=== PATIENT | male | born 1970 | race Caucasian/White ===

== ENCOUNTER 2019-10-30 23:58 | Inpatient (IN) | payer BC, MEDICAID, OTHER ==
[~2019-10-30] VITALS: Ht 172.7 cm; Wt 58.1 kg
[~2019-10-30 23:58] MED LIST: FOLI0.4T14 PO; LACT10SO32 PO; MIDO2.5T14 PO; MULT-1179 PO; PENT400T17 PO; PRED20TA PO; folic acid tablet PO; thiamine tablet PO
[2019-10-31] MEDS ORDERED: normal saline 1000ML IV soln IVB ONE (00:15)
[2019-10-31 00:33] LABS: BASOPHILS # (AUTO) 0.2 X10'3 (0-0.2); BASOPHILS % (AUTO) 0.4 % (0-1); EOSINOPHILS # (AUTO) 0.1 X10'3 (0-0.9); EOSINOPHILS % (AUTO) 0.2 % (0-6); HEMATOCRIT 28.1 % (42.0-52.0); HEMOGLOBIN 9.1 g/dl (14.0-17.9); LYMPHOCYTES # (AUTO) 1.4 X10'3 (1.1-4.8); LYMPHOCYTES % (AUTO) 3.3 % (21-51); MEAN CORPUSCULAR HEMOGLOBIN 37.1 PG (27.0-31.0); MEAN CORPUSCULAR HGB CONC 32.5 g/dL (33.0-36.5); MEAN CORPUSCULAR VOLUME 114.3 FL (78-98); MEAN PLATELET VOLUME 9.8 FL (7.4-10.4); MONOCYTES # (AUTO) 2.4 X10'3 (0-0.9); MONOCYTES % (AUTO) 5.8 % (2-12); NEUTROPHILS # (AUTO) 36.6 X10'3 (1.8-7.7); NEUTROPHILS % (AUTO) 90.3 % (42-75); PLATELET COUNT 88 X10'3 (140-440); RED BLOOD COUNT 2.45 X10'6 (4.70-6.10); RED CELL DISTRIBUTION WIDTH 17.3 % (11.5-14.5)
[2019-10-31 00:41] LABS: ALANINE AMINOTRANSFERASE 53 U/L (12-78); ALBUMIN 1.6 G/DL (3.4-5.0); ALKALINE PHOSPHATASE 528 IU/L (46-116); AMYLASE 37 U/L (25-115); BLOOD UREA NITROGEN 60 MG/DL (7-18); BUN/CREATININE RATIO 13.1 (5.4-32.0); CALCIUM 7.6 MG/DL (8.5-10.1); CREATININE 4.58 MG/DL (0.60-1.10); LIPASE 178 U/L (73-393); TOTAL CARBON DIOXIDE 19.2 MMOL/L (24-32); WHITE BLOOD COUNT 40.6 X10'3 (4.5-11.0); eGFR 14 ML/MIN
[2019-10-31 00:56] LABS: ASPARTATE AMINO TRANSFERASE 111 U/L (10-37); GLUCOSE 115 MG/DL (70-104); POTASSIUM 5.1 MMOL/L (3.5-5.1); SODIUM 134 MMOL/L (135-145)
[2019-10-31 00:58] LABS: TOTAL CELLS COUNTED 100
[2019-10-31 00:59] LABS: ANISOCYTOSIS 2+; PLATELET ESTIMATE DECREASED; POLYCHROMASIA 1+
[2019-10-31 01:01] LABS: ALBUMIN/GLOBULIN RATIO 0.8 (1.1-1.5); ANION GAP 16 (8-16); CHLORIDE 99 MMOL/L (99-107); TOTAL PROTEIN 3.7 G/DL (6.4-8.2)
[2019-10-31 01:02] LABS: ETHANOL < 0.010 GM/DL (0.0-0.010)
--- NOTE | 2019-10-31 02:35 | NUR ---
PATIENT IN BED EYES CLOSED COVERS ON RR EVEN UN LABORED NO OBSERVABLE S/S OF ACUTE STRESS AT THIS TIME WILL CONTINUE TO MONITOR
[2019-10-31] MEDS ORDERED: piperacillin/tazo 3.375gm/50ml 50 ML IV STA (02:55)
[2019-10-31] MEDS ORDERED: acetaminophen 325mg tablet PO PRN ×2 (04:25)
[2019-10-31] MEDS ORDERED: acetaminophen 650mg rectal suppository RC PRN (04:25)
[2019-10-31 06:32] LABS: CLARITY,URINE CLOUDY (Clear); COLOR,URINE YELLOW (Yellow); GLUCOSE, URINE NEGATIVE (Neg); KETONES,URINE NEGATIVE (Neg); LEUKOCYTE ESTERASE ,URINE NEGATIVE (Neg); NITRITES, URINE NEGATIVE (Neg); OCCULT BLOOD,URINE MODERATE (Neg); PH,URINE 5.5 (4.8-8.0); PROTEIN,URINE TRACE mg/dl (Neg); UROBILINOGEN,URINE 0.2 E.U/dL (0.2-1.0)
[2019-10-31 06:34] LABS: UA COLLECTION TYPE CLN CATCH MIDSTREAM
[2019-10-31 06:37] LABS: URINE AMPHETAMINE SCREEN NEGATIVE (Neg); URINE BARBITUATE SCREEN NEGATIVE (Neg); URINE BENZODIAZEPINES SCREEN NEGATIVE (Neg); URINE CANNABINOID SCREEN NEGATIVE (Neg); URINE COCAINE SCREEN NEGATIVE (Neg); URINE METHADONE SCREEN NEGATIVE (Neg); URINE OPIATE SCREEN NEGATIVE (Neg); URINE PHENCYCLIDINE SCREEN NEGATIVE (Neg)
[2019-10-31 06:40] LABS: HYALINE CASTS 0-3 /LPF (NEGATIVE); MUCUS STRANDS FEW /LPF (Neg); SQUAMOUS EPITHELIAL CELL,UR FEW /LPF (FEW)
[2019-10-31 06:44] LABS: BACTERIA,URINE 1+ /HPF (Neg); CAL OXALATE CRYSTALS FEW /HPF (NEGATIVE); RBC,URINE 0-2 /HPF (0-2); RENAL CELLS, URINE FEW /HPF; TRANSITIONAL EPI CELLS,URINE FEW /HPF; WBC,URINE 0-4 /HPF (0-4)
--- NOTE | 2019-10-31 06:44 | NUR ---
sbar to leeann lind no questions or concerns after assuming care
[2019-10-31] MEDS ORDERED: SINCALIDE IV ONE (07:10)
[2019-10-31] MEDS ORDERED: NORMAL SALINE IV ONE (07:10)
[2019-10-31] MEDS: piperacillin/tazo 3.375gm/50ml 50 ML IV SCH ×2 (09:30→18:10)
[2019-10-31] MEDS ORDERED: heparin 1,000unit/ml 10ml vial 10 ML IV ONE (12:01)
[2019-10-31] MEDS ORDERED: epoetin 20,000 units/ml inj IV ONE (12:05)
[2019-10-31] MEDS ORDERED: heparin 1,000 units/ml 10ml inj IV ONE (12:05)
[2019-10-31] MEDS ORDERED: albumin (human) 25% 100ml IV 100 ML IV PRN (12:05)
[2019-10-31] MEDS ORDERED: heparin 1,000 units/ml 10ml inj HE ONE ×2 (12:05)
[2019-10-31 12:31] VITALS: BP 91/53
--- NOTE | 2019-10-31 13:35 | NUR ---
Pt to Nuc [employer] with tech
[2019-10-31] MEDS ORDERED: MULT-1085 PO (14:06)
[2019-10-31] MEDS ORDERED: LACT10SO PO (14:06)
[2019-10-31] MEDS ORDERED: FOLI0.4T14 PO (14:06)
[2019-10-31] MEDS ORDERED: THIA50TA10 PO (14:06)
[2019-10-31] MEDS ORDERED: MIDO5TAB4 PO (14:06)
[2019-10-31] MEDS ORDERED: PRED10TA23 PO (14:06)
[2019-10-31] MEDS ORDERED: PENT400T17 PO (14:06)
--- NOTE | 2019-10-31 15:00 | NUR ---
Recieved report from BALDEMAR Ramirez pt is back from [facility] scan
--- NOTE | 2019-10-31 15:01 | NUR ---
Malnutrition consult: Pt admit w/ cholecystitis w/ cholelithiasis, hx hepatorenal syndrome ESRD on HD, and etoh cirrhosis. Pt placed on renal diet but currently NPO for HIDA scan and possible laparoscopic cholecystostomy per MD note. MCV 114.3 w/ cirrhosis and etoh hx. RD d/w MD regarding appetite stimulant as well as thiamin, folic, MVI given HD, poor PO hx recent prior admit not meeting needs, and etoh cirrhosis needs. MD declines appetite stimulant and vitamin supplementation at this time; reports pt currently sober. Current pt wt has no weight method or actual wt documentation in EMR; pt has no edema/wounds. Pt PO hx is pending at this time and no strength assessment noted. Pt is well-developed/well-nourished appearing per FUNDING COORDINATOR note on admit. Pt did meet minimum severe malnutrition criteria prior admit r/t extended poor PO given increased needs and was recently discharged 10/25. Wt loss amount not noted in nursing malnutrition assessment. Pt has been provided written cirrhosis, HD, and malnutrition ed w/ RD contact information prior admit. Given recent positive trigger for severe malnutrition and current lack of information; malnutrition status pending at this time. Will f/u tomorrow for additional malnutrition criteria this admit. Addendum: 10/31/19 at [address] Amended: Links added.
[2019-10-31] MEDS: morphine 2 MG/ML inj. syringe IV PRN (15:09)
[2019-10-31] MEDS ORDERED: midazolam 2 mg/2 ml injection ONE (17:47)
[2019-10-31] MEDS ORDERED: iohexol 300 MG/1 ML 50ml polymer ONE (17:47)
[2019-10-31] MEDS ORDERED: fentaNYL/PF 50MCG/1 ML 2ML syringe ONE (17:47)
[2019-10-31] MEDS ORDERED: LIDOcaine 1%/PF 5ML 10 MG/ML VIAL ONE (17:47)
[2019-10-31 18:00] VITALS: BP 93/57
--- NOTE | 2019-10-31 18:30 | NUR ---
Problems reprioritized. Patient report given, questions answered & plan of care reviewed with Hannah Uribe RN.
[2019-10-31] MEDS ORDERED: iohexol 300mg/ml 100ml inj. ONE (19:31)
[2019-10-31] MEDS: lactobacillus rhamnosus 10,000 MMU CELLS/CAPSULE PO SCH (21:24)
[2019-10-31 22:00] VITALS: BP 86/51
[2019-10-31 22:15] VITALS: BP 88/59
[2019-10-31 23:00] VITALS: BP 86/51
[2019-11-01] VITALS (8 sets, daily range): BP systolic 78–96; BP diastolic 45–61
[2019-11-01] MEDS: piperacillin/tazo 3.375gm/50ml 50 ML IV SCH ×2 (00:51→20:37)
[2019-11-01 03:41] LABS: BASOPHILS # (AUTO) 0.1 X10'3 (0-0.2); BASOPHILS % (AUTO) 0.2 % (0-1); EOSINOPHILS # (AUTO) 0.2 X10'3 (0-0.9); EOSINOPHILS % (AUTO) 0.3 % (0-6); HEMOGLOBIN 9.2 g/dl (14.0-17.9); LYMPHOCYTES # (AUTO) 1.8 X10'3 (1.1-4.8); LYMPHOCYTES % (AUTO) 3.8 % (21-51); MEAN CORPUSCULAR HGB CONC 32.8 g/dL (33.0-36.5); MEAN CORPUSCULAR VOLUME 112.7 FL (78-98); MEAN PLATELET VOLUME 9.8 FL (7.4-10.4); MONOCYTES # (AUTO) 2.2 X10'3 (0-0.9); MONOCYTES % (AUTO) 4.6 % (2-12); NEUTROPHILS % (AUTO) 91.1 % (42-75); PLATELET COUNT 94 X10'3 (140-440); RED BLOOD COUNT 2.48 X10'6 (4.70-6.10); RED CELL DISTRIBUTION WIDTH 17.6 % (11.5-14.5)
[2019-11-01 03:48] LABS: ALANINE AMINOTRANSFERASE 49 U/L (12-78); ALBUMIN 1.5 G/DL (3.4-5.0); ALKALINE PHOSPHATASE 576 IU/L (46-116); ANION GAP 16 (8-16); BILIRUBIN,TOTAL 23.4 MG/DL (0.1-1.0); BLOOD UREA NITROGEN 78 MG/DL (7-18); BUN/CREATININE RATIO 13.2 (5.4-32.0); CALCIUM 7.4 MG/DL (8.5-10.1); CHLORIDE 96 MMOL/L (99-107); MAGNESIUM 1.9 MG/DL (1.5-2.4); SODIUM 129 MMOL/L (135-145); TOTAL CARBON DIOXIDE 16.7 MMOL/L (24-32); eGFR 10 ML/MIN
[2019-11-01 03:49] LABS: ALBUMIN/GLOBULIN RATIO 0.7 (1.1-1.5); ASPARTATE AMINO TRANSFERASE 97 U/L (10-37); GLUCOSE 108 MG/DL (70-104); PHOSPHORUS 6.8 MG/DL (2.3-4.5); POTASSIUM 5.4 MMOL/L (3.5-5.1); TOTAL PROTEIN 3.8 G/DL (6.4-8.2)
[2019-11-01 03:51] LABS: WHITE BLOOD COUNT 47.2 X10'3 (4.5-11.0)
--- NOTE | 2019-11-01 03:54 | NUR ---
Paged Dr. Uribe. PAGER ID: [phone] MESSAGE: [id number] : Kenny, P : Received critical lab value : WBC = 47.2.
[2019-11-01 04:32] LABS: TOTAL CELLS COUNTED 100
[2019-11-01 04:33] LABS: PLATELET ESTIMATE DECREASED
[2019-11-01 04:34] LABS: ANISOCYTOSIS 2+; POLYCHROMASIA 1+
--- NOTE | 2019-11-01 06:07 | NUR ---
Patient in room PCU 3012. I have received report from BALDEMAR Cortes and had the opportunity to ask questions and assume patient care.
--- NOTE | 2019-11-01 06:14 | NUR ---
Problems reprioritized. Patient report given, questions answered & plan of care reviewed with BALDEMAR Walsh.
[2019-11-01] MEDS ORDERED: albumin (human) 25% 100ml IV 100 ML IV PRN (07:45)
[2019-11-01] MEDS ORDERED: epoetin 20,000 units/ml inj IV ONE (07:45)
[2019-11-01] MEDS ORDERED: heparin 1,000 units/ml 10ml inj HE ONE ×2 (07:50)
[2019-11-01] MEDS: lactobacillus rhamnosus 10,000 MMU CELLS/CAPSULE PO SCH ×2 (08:11→20:37)
[2019-11-01] MEDS: morphine 2 MG/ML inj. syringe IV PRN (10:25)
[2019-11-01] MEDS: ondansetron/PF 4mg/2ml inj IV PRN (10:40)
--- NOTE | 2019-11-01 11:15 | NUR ---
Per Dr Santana GI consult has been ordered for patient by Dr Daugherty, Cholecystomy drain placement on hold for GI recommendation Nursing staff informed
[2019-11-01] MEDS ORDERED: NO HOME MEDS (12:37)
--- NOTE | 2019-11-01 15:23 | NUR ---
F/u: Pt PO 100% breakfast today per RN; documented 50% dinner last night first meal. CT shows moderate ascites and cholelithiasis. At this time pt has no edema/wounds, normal strength, decent PO first few meals, and does not meet minimum malnutrition criteria. Will monitor for PO hx and additional malnutrition criteria this admit. Addendum: 11/01/19 at [address] Amended: Links added.
[2019-11-01] MEDS ORDERED: SINCALIDE IV ONE (15:55)
[2019-11-01] MEDS ORDERED: NORMAL SALINE IV ONE (15:55)
--- NOTE | 2019-11-01 18:24 | NUR ---
Problems reprioritized. Patient report given, questions answered & plan of care reviewed with BALDEMAR Gonsales.
--- NOTE | 2019-11-01 18:30 | NUR ---
Patient in room PCU 3012. I have received report from Jillian MCDERMOTT and had the opportunity to ask questions and assume patient care.
--- NOTE | 2019-11-01 21:02 | NUR ---
informed electrophonic engineer storage wharfage clerk of pt episode of sustained hypotension since 1499. ENVIRONMENTAL LEAD asked me to resume monitoring and notify if BP continues to trend further down.
[2019-11-02] VITALS (23 sets, daily range): BP systolic 72–122; BP diastolic 39–88
[2019-11-02 05:41] LABS: BASOPHILS # (AUTO) 0.1 X10'3 (0-0.2); BASOPHILS % (AUTO) 0.3 % (0-1); EOSINOPHILS # (AUTO) 0.2 X10'3 (0-0.9); EOSINOPHILS % (AUTO) 0.4 % (0-6); HEMOGLOBIN 9.2 g/dl (14.0-17.9); LYMPHOCYTES # (AUTO) 2.1 X10'3 (1.1-4.8); LYMPHOCYTES % (AUTO) 4.5 % (21-51); MEAN CORPUSCULAR HEMOGLOBIN 36.8 PG (27.0-31.0); MEAN CORPUSCULAR HGB CONC 32.9 g/dL (33.0-36.5); MEAN CORPUSCULAR VOLUME 111.6 FL (78-98); MEAN PLATELET VOLUME 10.3 FL (7.4-10.4); MONOCYTES # (AUTO) 2.7 X10'3 (0-0.9); MONOCYTES % (AUTO) 5.9 % (2-12); NEUTROPHILS # (AUTO) 41.5 X10'3 (1.8-7.7); NEUTROPHILS % (AUTO) 88.9 % (42-75); PLATELET COUNT 94 X10'3 (140-440); RED BLOOD COUNT 2.51 X10'6 (4.70-6.10); RED CELL DISTRIBUTION WIDTH 17.4 % (11.5-14.5)
[2019-11-02 05:53] LABS: WHITE BLOOD COUNT 46.6 X10'3 (4.5-11.0)
[2019-11-02 05:56] LABS: ALANINE AMINOTRANSFERASE 52 U/L (12-78); ALBUMIN 1.4 G/DL (3.4-5.0); ALKALINE PHOSPHATASE 582 IU/L (46-116); ANION GAP 10 (8-16); BILIRUBIN,TOTAL 22.1 MG/DL (0.1-1.0); BLOOD UREA NITROGEN 47 MG/DL (7-18); CALCIUM 7.4 MG/DL (8.5-10.1); CHLORIDE 98 MMOL/L (99-107); MAGNESIUM 1.8 MG/DL (1.5-2.4); SODIUM 132 MMOL/L (135-145); TOTAL CARBON DIOXIDE 24.2 MMOL/L (24-32)
[2019-11-02 06:08] LABS: ASPARTATE AMINO TRANSFERASE 111 U/L (10-37); BUN/CREATININE RATIO 10.7 (5.4-32.0); CREATININE 4.39 MG/DL (0.60-1.10); GLUCOSE 94 MG/DL (70-104); PHOSPHORUS 5.9 MG/DL (2.3-4.5); POTASSIUM 4.5 MMOL/L (3.5-5.1); eGFR 14 ML/MIN
--- NOTE | 2019-11-02 06:18 | NUR ---
Problems reprioritized. Patient report given, questions answered & plan of care reviewed with Chace MCDERMOTT.
[2019-11-02 06:24] LABS: ALBUMIN/GLOBULIN RATIO 0.5 (1.1-1.5)
[2019-11-02 06:46] LABS: PLATELET ESTIMATE DECREASED; TOTAL CELLS COUNTED 100
--- NOTE | 2019-11-02 06:46 | NUR ---
Patient in room PCU 3012. I have received report from TERE MCDERMOTT and had the opportunity to ask questions and assume patient care.
[2019-11-02 06:47] LABS: ANISOCYTOSIS 2+; POLYCHROMASIA 2+; ROULEAUX 1+; TOXIC GRANULATION 2+
[2019-11-02 06:48] LABS: HYPOCHROMASIA 1+
[2019-11-02] MEDS: piperacillin/tazo 3.375gm/50ml 50 ML IV SCH ×2 (08:00→19:39)
[2019-11-02] MEDS: lactobacillus rhamnosus 10,000 MMU CELLS/CAPSULE PO SCH ×2 (09:16→19:40)
[2019-11-02] MEDS ORDERED: fentaNYL/PF 50MCG/1 ML 2ML syringe ONE ×2 (18:12→19:03)
--- NOTE | 2019-11-02 18:21 | NUR ---
Pt to IR for para and drain
[2019-11-02] MEDS ORDERED: albumin (human) 25% 100ml IV 200 ML IV ONE ×2 (18:25)
--- NOTE | 2019-11-02 18:35 | NUR ---
Problems reprioritized. Patient report given, questions answered & plan of care reviewed with Dru RN.
[2019-11-02 21:34] LABS: GLUCOSE,BODY FLUID 140 MG/DL; LDH,BODY FLUID 65 U/L
[2019-11-02 22:12] LABS: BFAPPEAR CLEAR; BFCOLOR AMBER; BFVOLUME 65 ML
[2019-11-02 22:13] LABS: BF RBC COUNT 118 /CU MM; BF WBC COUNT 48 /CU MM (0-1000); LYMPHOCYTES,BODY FLUID 8 %; MONOCYTES,BODY FLUID 9 %; NEUTROPHILS,BODY FLUID 83 %
[2019-11-02 22:16] LABS: TOTAL PROTEIN,BODY FLUID < 2.0 G/DL
[2019-11-02 23:02] LABS: BFAPPEAR CLEAR
[2019-11-02 23:04] LABS: BF RBC COUNT 0 /CU MM; BF WBC COUNT 1 /CU MM (0-1000); BFCOLOR AMBER; BFVOLUME 29 ML
[2019-11-03] VITALS (7 sets, daily range): BP systolic 75–91; BP diastolic 41–48
[2019-11-03 05:37] LABS: ALANINE AMINOTRANSFERASE 37 U/L (12-78); ALBUMIN 1.8 G/DL (3.4-5.0); ALKALINE PHOSPHATASE 447 IU/L (46-116); BILIRUBIN,TOTAL 21.6 MG/DL (0.1-1.0); BLOOD UREA NITROGEN 56 MG/DL (7-18); MAGNESIUM 1.8 MG/DL (1.5-2.4); TOTAL CARBON DIOXIDE 21.7 MMOL/L (24-32)
[2019-11-03 05:45] LABS: ALBUMIN/GLOBULIN RATIO 0.9 (1.1-1.5); TOTAL PROTEIN 3.8 G/DL (6.4-8.2)
[2019-11-03 05:47] LABS: BASOPHILS # (AUTO) 0.1 X10'3 (0-0.2); BASOPHILS % (AUTO) 0.2 % (0-1); EOSINOPHILS # (AUTO) 0.2 X10'3 (0-0.9); EOSINOPHILS % (AUTO) 0.6 % (0-6); HEMATOCRIT 24.9 % (42.0-52.0); HEMOGLOBIN 8.1 g/dl (14.0-17.9); LYMPHOCYTES # (AUTO) 1.9 X10'3 (1.1-4.8); LYMPHOCYTES % (AUTO) 4.7 % (21-51); MEAN CORPUSCULAR HEMOGLOBIN 36.4 PG (27.0-31.0); MEAN CORPUSCULAR HGB CONC 32.6 g/dL (33.0-36.5); MEAN CORPUSCULAR VOLUME 111.5 FL (78-98); MEAN PLATELET VOLUME 9.7 FL (7.4-10.4); MONOCYTES # (AUTO) 1.9 X10'3 (0-0.9); MONOCYTES % (AUTO) 4.6 % (2-12); NEUTROPHILS % (AUTO) 89.9 % (42-75); PLATELET COUNT 66 X10'3 (140-440); RED BLOOD COUNT 2.24 X10'6 (4.70-6.10)
[2019-11-03 05:50] LABS: ASPARTATE AMINO TRANSFERASE 81 U/L (10-37); BUN/CREATININE RATIO 10.9 (5.4-32.0); CHLORIDE 92 MMOL/L (99-107); CREATININE 5.16 MG/DL (0.60-1.10); GLUCOSE 90 MG/DL (70-104); PHOSPHORUS 5.7 MG/DL (2.3-4.5); POTASSIUM 4.4 MMOL/L (3.5-5.1); eGFR 12 ML/MIN
[2019-11-03 05:51] LABS: ANION GAP 15 (8-16); SODIUM 129 MMOL/L (135-145)
--- NOTE | 2019-11-03 06:06 | NUR ---
Problems reprioritized. Patient report given, questions answered & plan of care reviewed with Carolyn MCDERMOTT.
--- NOTE | 2019-11-03 06:10 | NUR ---
Patient in room PCU 3012. I have received report from Dru and had the opportunity to ask questions and assume patient care.
[2019-11-03 07:03] LABS: WHITE BLOOD COUNT 41.1 X10'3 (4.5-11.0)
[2019-11-03 07:05] LABS: ANISOCYTOSIS 1+; HYPOCHROMASIA 1+; PLATELET ESTIMATE DECREASED; POLYCHROMASIA 2+; TOTAL CELLS COUNTED 100
--- NOTE | 2019-11-03 07:05 | NUR ---
Received critical WBCs of 41.1
[2019-11-03 07:06] LABS: TOXIC GRANULATION 1+
[2019-11-03 07:53] LABS: AFP,SERUM, TUMOR MARKER <0.9 ng/mL (0.0-8.3)
[2019-11-03] MEDS ORDERED: normal saline 1000ml 250 ML IV PRN (08:00)
[2019-11-03] MEDS ORDERED: heparin 1,000unit/ml 10ml vial 10 ML IV ONE (08:00)
[2019-11-03] MEDS ORDERED: epoetin 20,000 units/ml inj IV ONE (08:00)
[2019-11-03] MEDS ORDERED: heparin 1,000 units/ml 10ml inj HE ONE ×2 (08:00)
[2019-11-03] MEDS: lactobacillus rhamnosus 10,000 MMU CELLS/CAPSULE PO SCH ×2 (08:13→20:38)
[2019-11-03] MEDS: piperacillin/tazo 3.375gm/50ml 50 ML IV SCH ×2 (08:14→20:38)
[2019-11-03] MEDS: midodrine tablet 2.5 MG TABLET PO SCH ×2 (10:50→16:05)
--- NOTE | 2019-11-03 14:04 | NUR ---
Phoned pt's father with pt's permission to inquire about medications pt takes. Pt indicated he does not have any knowledge regarding home medications and that his father takes care of med administration for him. Father's number is . Called and left a brief message on the answering machine. Provided call back number.
[2019-11-03] MEDS ORDERED: MULT-1085 PO (18:09)
[2019-11-03] MEDS ORDERED: LACT10SO PO (18:09)
[2019-11-03] MEDS ORDERED: PRED10TA23 PO (18:09)
[2019-11-03] MEDS ORDERED: MIDO5TAB4 PO (18:09)
[2019-11-03] MEDS ORDERED: THIA50TA10 PO (18:09)
[2019-11-03] MEDS ORDERED: PENT400T17 PO (18:09)
[2019-11-03] MEDS ORDERED: FOLI0.4T14 PO (18:09)
--- NOTE | 2019-11-03 18:34 | NUR ---
Problems reprioritized. Patient report given, questions answered & plan of care reviewed with Doreen.
[2019-11-03] MEDS: lactulose 20gm/30ml cup PO SCH (20:37)
[2019-11-04] VITALS (8 sets, daily range): BP systolic 77–112; BP diastolic 41–87
[2019-11-04] MEDS ORDERED: midodrine 5mg tablet PO SCH
[2019-11-04] MEDS: midodrine tablet 2.5 MG TABLET PO SCH ×4 (00:48→23:27)
[2019-11-04 04:31] LABS: BASOPHILS # (AUTO) 0.1 X10'3 (0-0.2); BASOPHILS % (AUTO) 0.3 % (0-1); EOSINOPHILS # (AUTO) 0.1 X10'3 (0-0.9); EOSINOPHILS % (AUTO) 0.3 % (0-6); HEMATOCRIT 27.2 % (42.0-52.0); LYMPHOCYTES # (AUTO) 1.8 X10'3 (1.1-4.8); LYMPHOCYTES % (AUTO) 3.9 % (21-51); MEAN CORPUSCULAR HEMOGLOBIN 36.3 PG (27.0-31.0); MEAN CORPUSCULAR VOLUME 110.2 FL (78-98); MEAN PLATELET VOLUME 10.7 FL (7.4-10.4); MONOCYTES # (AUTO) 2.4 X10'3 (0-0.9); MONOCYTES % (AUTO) 5.3 % (2-12); NEUTROPHILS # (AUTO) 40.8 X10'3 (1.8-7.7); NEUTROPHILS % (AUTO) 90.2 % (42-75); PLATELET COUNT 87 X10'3 (140-440); RED BLOOD COUNT 2.47 X10'6 (4.70-6.10); RED CELL DISTRIBUTION WIDTH 17.6 % (11.5-14.5)
[2019-11-04 04:40] LABS: WHITE BLOOD COUNT 45.2 X10'3 (4.5-11.0)
[2019-11-04 04:45] LABS: ALANINE AMINOTRANSFERASE 33 U/L (12-78); ALBUMIN 1.6 G/DL (3.4-5.0); ALKALINE PHOSPHATASE 460 IU/L (46-116); BILIRUBIN,TOTAL 22.6 MG/DL (0.1-1.0); BLOOD UREA NITROGEN 27 MG/DL (7-18); BUN/CREATININE RATIO 7.4 (5.4-32.0); CALCIUM 7.5 MG/DL (8.5-10.1); CHLORIDE 99 MMOL/L (99-107); CREATININE 3.66 MG/DL (0.60-1.10); MAGNESIUM 1.7 MG/DL (1.5-2.4); TOTAL CARBON DIOXIDE 24.3 MMOL/L (24-32); eGFR 18 ML/MIN
[2019-11-04 05:01] LABS: ASPARTATE AMINO TRANSFERASE 75 U/L (10-37)
[2019-11-04 05:02] LABS: ALBUMIN/GLOBULIN RATIO 0.7 (1.1-1.5); ANION GAP 12 (8-16); GLUCOSE 113 MG/DL (70-104); PHOSPHORUS 3.6 MG/DL (2.3-4.5); POTASSIUM 4.2 MMOL/L (3.5-5.1); SODIUM 135 MMOL/L (135-145)
--- NOTE | 2019-11-04 06:10 | NUR ---
Patient in room PCU 3012. I have received report from Doreen MCDERMOTT and had the opportunity to ask questions and assume patient care.
[2019-11-04 07:21] LABS: TOTAL CELLS COUNTED 100
[2019-11-04 07:22] LABS: ANISOCYTOSIS 1+; PLATELET ESTIMATE DECREASED
[2019-11-04 07:23] LABS: POLYCHROMASIA 2+; TARGET CELLS FEW; TEAR DROP CELLS 1+; TOXIC GRANULATION 2+
[2019-11-04] MEDS: piperacillin/tazo 3.375gm/50ml 50 ML IV SCH ×2 (07:38→19:53)
[2019-11-04] MEDS: lactulose 20gm/30ml cup PO SCH (07:38)
[2019-11-04] MEDS: predniSONE 20 mg tablet PO SCH (07:39)
[2019-11-04] MEDS: multivitamins, therapeutics tablet PO SCH (07:39)
[2019-11-04] MEDS: thiamine 100mg tablet PO SCH (07:39)
[2019-11-04] MEDS: lactobacillus rhamnosus 10,000 MMU CELLS/CAPSULE PO SCH ×2 (07:39→19:53)
[2019-11-04] MEDS: folic acid 1mg tablet PO SCH (07:39)
[2019-11-04] MEDS: morphine 2 MG/ML inj. syringe IV PRN ×3 (10:49→23:27)
[2019-11-04 15:10] LABS: CERULOPLASMIN 15.6 mg/dL (16.0-31.0)
[2019-11-04] MEDS: ondansetron/PF 4mg/2ml inj IV PRN (16:28)
--- NOTE | 2019-11-04 18:05 | NUR ---
Problems reprioritized. Patient report given, questions answered & plan of care reviewed with Doreen MCDERMOTT.
[2019-11-05] VITALS (13 sets, daily range): BP systolic 90–122; BP diastolic 50–67
--- NOTE | 2019-11-05 06:00 | NUR ---
Patient in room PCU 3012. I have received report from Doreen MCDERMOTT and had the opportunity to ask questions and assume patient care.
[2019-11-05] MEDS: ondansetron/PF 4mg/2ml inj IV PRN (07:34)
[2019-11-05] MEDS: morphine 2 MG/ML inj. syringe IV PRN ×3 (07:34→20:00)
[2019-11-05] MEDS: piperacillin/tazo 3.375gm/50ml 50 ML IV SCH (07:35)
[2019-11-05] MEDS: multivitamins, therapeutics tablet PO SCH (08:22)
[2019-11-05] MEDS: predniSONE 20 mg tablet PO SCH (08:22)
[2019-11-05] MEDS: midodrine tablet 2.5 MG TABLET PO SCH ×2 (08:22→17:17)
[2019-11-05] MEDS: folic acid 1mg tablet PO SCH (08:22)
[2019-11-05] MEDS: lactulose 20gm/30ml cup PO SCH (08:22)
[2019-11-05] MEDS: lactobacillus rhamnosus 10,000 MMU CELLS/CAPSULE PO SCH ×2 (08:22→19:48)
[2019-11-05] MEDS: thiamine 100mg tablet PO SCH (08:23)
[2019-11-05 10:19] LABS: BASOPHILS # (AUTO) 0.1 X10'3 (0-0.2); BASOPHILS % (AUTO) 0.2 % (0-1); EOSINOPHILS % (AUTO) 0 % (0-6); HEMATOCRIT 31.9 % (42.0-52.0); HEMOGLOBIN 10.4 g/dl (14.0-17.9); LYMPHOCYTES # (AUTO) 1.2 X10'3 (1.1-4.8); MEAN CORPUSCULAR HEMOGLOBIN 35.6 PG (27.0-31.0); MEAN CORPUSCULAR HGB CONC 32.7 g/dL (33.0-36.5); MEAN PLATELET VOLUME 10.2 FL (7.4-10.4); MONOCYTES # (AUTO) 2.2 X10'3 (0-0.9); MONOCYTES % (AUTO) 3.6 % (2-12); NEUTROPHILS # (AUTO) 58.6 X10'3 (1.8-7.7); NEUTROPHILS % (AUTO) 94.2 % (42-75); PLATELET COUNT 114 X10'3 (140-440); RED BLOOD COUNT 2.93 X10'6 (4.70-6.10); RED CELL DISTRIBUTION WIDTH 17.6 % (11.5-14.5)
[2019-11-05 10:28] LABS: WHITE BLOOD COUNT 62.2 X10'3 (4.5-11.0)
[2019-11-05 10:30] LABS: ALANINE AMINOTRANSFERASE 32 U/L (12-78); ALBUMIN 1.6 G/DL (3.4-5.0); ALKALINE PHOSPHATASE 453 IU/L (46-116); ANION GAP 12 (8-16); BILIRUBIN,TOTAL 24.4 MG/DL (0.1-1.0); BLOOD UREA NITROGEN 46 MG/DL (7-18); BUN/CREATININE RATIO 9.1 (5.4-32.0); CALCIUM 7.9 MG/DL (8.5-10.1); CHLORIDE 95 MMOL/L (99-107); CREATININE 5.05 MG/DL (0.60-1.10); MAGNESIUM 1.9 MG/DL (1.5-2.4); SODIUM 130 MMOL/L (135-145); TOTAL CARBON DIOXIDE 22.9 MMOL/L (24-32); eGFR 12 ML/MIN
--- NOTE | 2019-11-05 10:32 | NUR ---
Patient has a critical WBC of 62.2, Dr Bergman in rounds in ICU, will notify via phone. Will continue to monitor closely. Addendum: 11/05/19 at 1127 by Gege Santos RN Dr Ayoub notified, no new orders received, will continue to monitor the patient closely.
[2019-11-05 10:58] LABS: ALBUMIN/GLOBULIN RATIO 0.6 (1.1-1.5); GLUCOSE 105 MG/DL (70-104); PHOSPHORUS 7.6 MG/DL (2.3-4.5); POTASSIUM 5.3 MMOL/L (3.5-5.1); TOTAL PROTEIN 4.4 G/DL (6.4-8.2)
[2019-11-05 10:59] LABS: ASPARTATE AMINO TRANSFERASE 50 U/L (10-37)
[2019-11-05 11:18] LABS: ANISOCYTOSIS 1+; PLATELET ESTIMATE DECREASED; TOTAL CELLS COUNTED 100
[2019-11-05 11:19] LABS: POLYCHROMASIA 1+; TEAR DROP CELLS 1+
[2019-11-05 11:21] LABS: SCHISTOCYTES 2+
[2019-11-05] MEDS ORDERED: LIDOcaine 2% 10ml TOPICAL JELLY (Urojet) TP ONE (12:25)
--- NOTE | 2019-11-05 12:25 | NUR ---
Called Dr. Ayoub regarding patients increasing abdominal ascites and discomfort, patients Creatinine has jumped from 3.66 to 5.05 today and hasn't made any UOP. Received orders to insert a Wolfe catheter and order a paracentesis. Will continue to monitor closely.
[2019-11-05 15:48] LABS: GLUCOSE,BODY FLUID 115 MG/DL; LDH,BODY FLUID 57 U/L
[2019-11-05 15:57] LABS: TOTAL PROTEIN,BODY FLUID < 2.0 G/DL
[2019-11-05 16:11] LABS: BF MESOTHELIAL CELLS FEW; BF RBC COUNT 438 /CU MM; BF WBC COUNT 120 /CU MM (0-1000); BFAPPEAR HAZY; BFCOLOR YELLOW; BFVOLUME 65 ML; LYMPHOCYTES,BODY FLUID 5 %; MONOCYTES,BODY FLUID 7 %; NEUTROPHILS,BODY FLUID 88 %
--- NOTE | 2019-11-05 18:11 | NUR ---
Initial: Pt admit w/ cholecystitis s/p cholecystostomy, SANDRA on HD w/ hepatorenal syndrome, recurrent ascites and etoh cirrhosis. S/p 3500ml removal paracentesis today and mott placed since no urine output per MD/RN notes. Pt PO has declined from initial 75% to 0% past 24 hours and 25-50% fluctuating overall. Pt has frequent BM's receiving routine lactulose; currently on c.diff isolation pending sample results. May also benefit from phos-binder per MD approval w/ Phos 7.6 today. Receiving thiamin, folic, MVI for etoh hx and HD needs. Prior recent admit pt disliked all liquid ONS; will trial vanilla ensure pudding BIDLD given additional protein/kcal needs on HD. Dietary notified. May benefit from diet liberalization and appetite stimulant if poor PO persists given pt poor PO hx prior admit as well currently not meeting needs. IF poor PO persists pt will again meet minimum severe malnutrition criteria. Will continue to monitor. Rec: 1. continue renal diet per MD; consider liberalization to regular given poor PO; encourage PO 2. vanilla ensure pudding BIDLD 3. routine bowel care; lactulose routine; consider phos-binder per MD approval 4. thiamin, folic, MVI given etoh cirrhosis and HD needs 5. consider appetite stimulant given poor PO per MD approval 6. wts w/ HD Addendum: 11/05/19 at [address] Amended: Links added.
--- NOTE | 2019-11-05 18:28 | NUR ---
Problems reprioritized. Patient report given, questions answered & plan of care reviewed with CUONG MCDERMOTT.
--- NOTE | 2019-11-05 18:39 | NUR ---
Patient in room PCU 3012. I have received report from Holli MCDERMOTT and had the opportunity to ask questions and assume patient care.
[2019-11-06] MEDS: morphine 2 MG/ML inj. syringe IV PRN ×6 (00:27→22:31)
[2019-11-06] MEDS: midodrine tablet 2.5 MG TABLET PO SCH ×3 (00:27→16:32)
[2019-11-06 02:00] VITALS: BP 125/70
[2019-11-06 05:21] LABS: BASOPHILS # (AUTO) 0.1 X10'3 (0-0.2); BASOPHILS % (AUTO) 0.1 % (0-1); EOSINOPHILS % (AUTO) 0 % (0-6); HEMATOCRIT 31.7 % (42.0-52.0); HEMOGLOBIN 10.4 g/dl (14.0-17.9); LYMPHOCYTES # (AUTO) 1.2 X10'3 (1.1-4.8); LYMPHOCYTES % (AUTO) 1.9 % (21-51); MEAN CORPUSCULAR HEMOGLOBIN 35.6 PG (27.0-31.0); MEAN CORPUSCULAR HGB CONC 32.7 g/dL (33.0-36.5); MEAN PLATELET VOLUME 9.8 FL (7.4-10.4); MONOCYTES % (AUTO) 3.3 % (2-12); NEUTROPHILS # (AUTO) 56.7 X10'3 (1.8-7.7); NEUTROPHILS % (AUTO) 94.7 % (42-75); PLATELET COUNT 116 X10'3 (140-440); RED BLOOD COUNT 2.91 X10'6 (4.70-6.10); RED CELL DISTRIBUTION WIDTH 17.3 % (11.5-14.5)
[2019-11-06 05:44] LABS: ALANINE AMINOTRANSFERASE 34 U/L (12-78); ALBUMIN 1.6 G/DL (3.4-5.0); ALKALINE PHOSPHATASE 421 IU/L (46-116); ANION GAP 19 (8-16); BILIRUBIN,TOTAL 24.9 MG/DL (0.1-1.0); BLOOD UREA NITROGEN 62 MG/DL (7-18); BUN/CREATININE RATIO 10.6 (5.4-32.0); CALCIUM 7.3 MG/DL (8.5-10.1); CHLORIDE 93 MMOL/L (99-107); CREATININE 5.84 MG/DL (0.60-1.10); SODIUM 130 MMOL/L (135-145); TOTAL CARBON DIOXIDE 17.9 MMOL/L (24-32); eGFR 10 ML/MIN
[2019-11-06 05:45] LABS: ALBUMIN/GLOBULIN RATIO 0.5 (1.1-1.5); ASPARTATE AMINO TRANSFERASE 49 U/L (10-37); GLUCOSE 100 MG/DL (70-104); POTASSIUM 5.4 MMOL/L (3.5-5.1); TOTAL PROTEIN 4.6 G/DL (6.4-8.2)
[2019-11-06 06:00] VITALS: BP 134/66
--- NOTE | 2019-11-06 06:11 | NUR ---
Patient in room PCU 3012. I have received report from Michaela MCDERMOTT and had the opportunity to ask questions and assume patient care.
--- NOTE | 2019-11-06 06:14 | NUR ---
Problems reprioritized. Patient report given, questions answered & plan of care reviewed with Holli MCDERMOTT.
[2019-11-06 06:40] LABS: ANISOCYTOSIS 1+; LARGE PLATELETS FEW; PLATELET ESTIMATE DECREASED; TOTAL CELLS COUNTED 100
[2019-11-06 06:41] LABS: POLYCHROMASIA FEW
[2019-11-06] MEDS ORDERED: epoetin 20,000 units/ml inj IV ONE (08:20)
[2019-11-06] MEDS ORDERED: albumin (human) 25% 100ml IV 100 ML IV PRN (08:20)
[2019-11-06] MEDS: lactobacillus rhamnosus 10,000 MMU CELLS/CAPSULE PO SCH ×2 (08:24→20:53)
[2019-11-06] MEDS: thiamine 100mg tablet PO SCH (08:24)
[2019-11-06] MEDS ORDERED: heparin 1,000 units/ml 10ml inj HE ONE ×2 (08:25)
[2019-11-06] MEDS: multivitamins, therapeutics tablet PO SCH (08:25)
[2019-11-06] MEDS: folic acid 1mg tablet PO SCH (08:25)
[2019-11-06] MEDS: lactulose 20gm/30ml cup PO SCH (08:35)
[2019-11-06 11:00] VITALS: BP 112/66
[2019-11-06 15:00] VITALS: BP 118/68
[2019-11-06 18:00] VITALS: BP 129/67
--- NOTE | 2019-11-06 18:29 | NUR ---
Problems reprioritized. Patient report given, questions answered & plan of care reviewed with Michaela MCDERMOTT.
--- NOTE | 2019-11-06 18:30 | NUR ---
Patient in room PCU 3012. I have received report from Holli MCDERMOTT and had the opportunity to ask questions and assume patient care.
--- NOTE | 2019-11-06 19:25 | NUR ---
F/u: Pt with documented 0% PO intake last six meals. Pt seen at bedside endorses low appetite in addition to severe weakness and fatigue. Pt with no food preferences at this time however acknowledges need for PO intake and protein needs. RD provided pt written renal diet alternative menu list and discussed possibility of supplemental alternate nutrition given low PO hx and additional protein needs on HD w/ ESLD of which pt is agreeable, pending d/w MD. TF recommendations below for if Corpak placement and pt to receive nutrition support. Pt currently meets criteria for severe malnutrition given poor PO intake x 3 days, severe muscle weakness, and visible fat and muscle wasting, MD notified. Pt recently admitted and provided with written and verbal HD/cirrhosis/malnutrition educations with ONS recommendations and RD contact information. LBM 11/05 documented as diarrhea, likely r/t Lactulose. Will continue to follow closely. Initial: Pt admit w/ cholecystitis s/p cholecystostomy, SANDRA on HD w/ hepatorenal syndrome, recurrent ascites and etoh cirrhosis. S/p 3500ml removal paracentesis today and mott placed since no urine output per MD/RN notes. Pt PO has declined from initial 75% to 0% past 24 hours and 25-50% fluctuating overall. Pt has frequent BM's receiving routine lactulose; currently on c.diff isolation pending sample results. May also benefit from phos-binder per MD approval w/ Phos 7.6 today. Receiving thiamin, folic, MVI for etoh hx and HD needs. Prior recent admit pt disliked all liquid ONS; will trial vanilla ensure pudding BIDLD given additional protein/kcal needs on HD. Dietary notified. May benefit from diet liberalization and appetite stimulant if poor PO persists given pt poor PO hx prior admit as well currently not meeting needs. IF poor PO persists pt will again meet minimum severe malnutrition criteria. Will continue to monitor. Rec: 1. continue renal diet per MD; consider liberalization to regular given poor PO; encourage PO intake 2. vanilla ensure pudding BIDLD 3. IF TF: continuous Vital AF with goal rate of 70 mL/hr to meet increased protein needs; additional water flush per MD given pt on HD and low serum Na 130 today; prealbumin q M/TH, daily weights 4. routine bowel care; lactulose routine; consider phos-binder per MD approval 5. thiamine, folic, MVI given etoh cirrhosis and HD needs 6. consider appetite stimulant given poor PO per MD approval 7. wts with HD Addendum: 11/06/19 at [address] Amended: Links added.
--- NOTE | 2019-11-06 19:30 | NUR ---
pt has bilateral bruising to posterior buttocks/hips which in addition to his poor nutrition intake is most likely associated with lack of moving around too much however pt is able to turn themselves in bed independently, discussed with pt the importance of turning themselves to help protect their skin, pt understands, propped both sides with pillows to relieve some of the pressure and will continue to help reposition pt throughout the night and monitor
[2019-11-06 22:00] VITALS: BP 104/56
[2019-11-07] MEDS: midodrine tablet 2.5 MG TABLET PO SCH ×3 (00:52→17:14)
[2019-11-07 02:00] VITALS: BP 118/61
[2019-11-07] MEDS: morphine 2 MG/ML inj. syringe IV PRN ×4 (02:44→17:19)
[2019-11-07 06:00] VITALS: BP 117/61
--- NOTE | 2019-11-07 06:10 | NUR ---
Patient in room PCU 3012. I have received report from BALDEMAR Jennings and had the opportunity to ask questions and assume patient care.
--- NOTE | 2019-11-07 06:33 | NUR ---
Problems reprioritized. Patient report given, questions answered & plan of care reviewed with Jillian MCDERMOTT.
[2019-11-07] MEDS: lactobacillus rhamnosus 10,000 MMU CELLS/CAPSULE PO SCH (07:39)
[2019-11-07] MEDS: thiamine 100mg tablet PO SCH (07:39)
[2019-11-07] MEDS: lactulose 20gm/30ml cup PO SCH (07:39)
[2019-11-07] MEDS: folic acid 1mg tablet PO SCH (07:40)
[2019-11-07] MEDS: multivitamins, therapeutics tablet PO SCH (07:40)
[2019-11-07 10:52] LABS: EOSINOPHILS # (AUTO) 0.1 X10'3 (0-0.9); EOSINOPHILS % (AUTO) 0.1 % (0-6); HEMOGLOBIN 10.3 g/dl (14.0-17.9); LYMPHOCYTES % (AUTO) 2.9 % (21-51)
[2019-11-07 10:55] LABS: BASOPHILS # (AUTO) 0.4 X10'3 (0-0.2); BASOPHILS % (AUTO) 0.7 % (0-1); HEMATOCRIT 30.7 % (42.0-52.0); LYMPHOCYTES # (AUTO) 1.8 X10'3 (1.1-4.8); MEAN CORPUSCULAR HEMOGLOBIN 35.8 PG (27.0-31.0); MEAN CORPUSCULAR HGB CONC 33.4 g/dL (33.0-36.5); MEAN CORPUSCULAR VOLUME 107.2 FL (78-98); MEAN PLATELET VOLUME 10.5 FL (7.4-10.4); MONOCYTES # (AUTO) 2.2 X10'3 (0-0.9); MONOCYTES % (AUTO) 3.6 % (2-12); NEUTROPHILS % (AUTO) 92.7 % (42-75); PLATELET COUNT 130 X10'3 (140-440); RED BLOOD COUNT 2.87 X10'6 (4.70-6.10); RED CELL DISTRIBUTION WIDTH 17.3 % (11.5-14.5)
[2019-11-07 10:57] LABS: WHITE BLOOD COUNT 60.4 X10'3 (4.5-11.0)
--- NOTE | 2019-11-07 10:57 | NUR ---
Critical lab: WBC 60.4. Notified primary RNJillian.
[2019-11-07 11:19] LABS: ALANINE AMINOTRANSFERASE 38 U/L (12-78); ALBUMIN 1.7 G/DL (3.4-5.0); ALKALINE PHOSPHATASE 367 IU/L (46-116); ANION GAP 15 (8-16); BLOOD UREA NITROGEN 41 MG/DL (7-18); BUN/CREATININE RATIO 8.7 (5.4-32.0); CALCIUM 7.3 MG/DL (8.5-10.1); CHLORIDE 94 MMOL/L (99-107); CREATININE 4.73 MG/DL (0.60-1.10); SODIUM 131 MMOL/L (135-145); TOTAL CARBON DIOXIDE 21.7 MMOL/L (24-32); eGFR 13 ML/MIN
[2019-11-07 11:24] LABS: ALBUMIN/GLOBULIN RATIO 0.6 (1.1-1.5); ASPARTATE AMINO TRANSFERASE 77 U/L (10-37); BILIRUBIN,TOTAL 25.9 MG/DL (0.1-1.0); GLUCOSE 103 MG/DL (70-104); POTASSIUM 4.7 MMOL/L (3.5-5.1); TOTAL PROTEIN 4.6 G/DL (6.4-8.2)
[2019-11-07 11:25] LABS: ANISOCYTOSIS 1+; PLATELET ESTIMATE DECREASED; TOTAL CELLS COUNTED 100
[2019-11-07 11:26] LABS: SMUDGE CELLS 1+
--- NOTE | 2019-11-07 18:30 | NUR ---
Patient in room PCU 3012. I have received report from Jillian MCDERMOTT and had the opportunity to ask questions and assume patient care.
--- NOTE | 2019-11-07 18:36 | NUR ---
Problems reprioritized. Patient report given, questions answered & plan of care reviewed with BALDEMAR Jennings.
--- NOTE | 2019-11-07 18:49 | NUR ---
Phoned report to BALDEMAR Lawrence @ [facility] p/u time [id number]
--- NOTE | 2019-11-07 19:07 | NUR ---
pt discharged, pt left with EMS, all pts belongings gathered and collected and given to EMS transport
== END 2019-11-07 18:45 | DRG 280 ==
LOC: ER 23:59 → ED HOLD 10-31 04:21 → PCU 3S 10-31 07:57
PROVIDERS: ADMIT Internal Medicine Critical Care Medicine; ATTEND Internal Medicine Critical Care Medicine
PROC: BW211ZZ Computerized Tomography (CT Scan) of Abdomen and Pelvis using Low Osmolar Contrast (ICD-10-PCS; principal; 2019-10-31)
PROC: 5A1D70Z Performance of Urinary Filtration, Intermittent, Less than 6 Hours Per Day (ICD-10-PCS; 2019-10-31)
PROC: 5A1D70Z Performance of Urinary Filtration, Intermittent, Less than 6 Hours Per Day (ICD-10-PCS; 2019-11-01)
PROC: 0F9430Z Drainage of Gallbladder with Drainage Device, Percutaneous Approach (ICD-10-PCS; 2019-11-02)
PROC: 0W9G3ZZ Drainage of Peritoneal Cavity, Percutaneous Approach (ICD-10-PCS; 2019-11-02)
PROC: 5A1D70Z Performance of Urinary Filtration, Intermittent, Less than 6 Hours Per Day (ICD-10-PCS; 2019-11-03)
PROC: 0W9G3ZZ Drainage of Peritoneal Cavity, Percutaneous Approach (ICD-10-PCS; 2019-11-05)
PROC: 5A1D70Z Performance of Urinary Filtration, Intermittent, Less than 6 Hours Per Day (ICD-10-PCS; 2019-11-06)
DX: K70.31 Alcoholic cirrhosis of liver with ascites (principal); K70.40 Alcoholic hepatic failure without coma; K76.7 Hepatorenal syndrome; K80.10 Calculus of gallbladder with chronic cholecystitis without obstruction; N18.6 End stage renal disease; Z99.2 Dependence on renal dialysis; Z88.8 Allergy status to other drugs, medicaments and biological substances; Z79.899 Other long term (current) drug therapy
CPT/HCPCS: 36415; 36558; 47490; 49083; 71045; 74150; 74176; 74177; 74181; 76700; 76937; 77001; 77013; 78226; 80053; 80305; 80320; 80329; 81001; 82103; 82140; 82150; 82390; 82945; 83605; 83615; 83690; 83735; 84100; 84157; 84484; 85007; 85025; 87040; 87045; 87046; 87070; 87075; 87081; 87102; 87324; 87449; 89051; 93005; 93975; 96361; 96365; 97110; 97161; 97530; 99285; A9537; G0257; G0378; J1644; J2250; J2270; J2405; J2543; J3010; J7030; J7512; P9047; Q4081; Q9967

== ENCOUNTER 2019-11-11 19:07 | Inpatient (IN) | payer MEDICAID ==
[~2019-11-11] VITALS: Ht 172.7 cm; Wt 63.9 kg
[~2019-11-11 19:07] MED LIST changes: +LACT10SO PO; -LACT10SO32 PO; -MIDO2.5T14 PO; +MIDO5TAB4 PO; +MULT-1085 PO; -MULT-1179 PO; +PRED10TA23 PO; -PRED20TA PO; +THIA50TA10 PO; -folic acid tablet PO; -thiamine tablet PO
[2019-11-11] MEDS ORDERED: pantoprazole 40 MG vial IV ONE (19:10)
[2019-11-11] MEDS ORDERED: ondansetron/PF 4mg/2ml inj IV ONE (19:10)
[2019-11-11 20:22] LABS: BASOPHILS # (AUTO) 0.1 X10'3 (0-0.2); EOSINOPHILS % (AUTO) 0 % (0-6); MONOCYTES % (AUTO) 3.7 % (2-12); RED BLOOD COUNT 2.94 X10'6 (4.70-6.10)
[2019-11-11 20:25] LABS: BASOPHILS % (AUTO) 0.3 % (0-1); HEMATOCRIT 31.1 % (42.0-52.0); HEMOGLOBIN 10.4 g/dl (14.0-17.9); LYMPHOCYTES # (AUTO) 0.8 X10'3 (1.1-4.8); LYMPHOCYTES % (AUTO) 1.4 % (21-51); MEAN CORPUSCULAR HEMOGLOBIN 35.4 PG (27.0-31.0); MEAN CORPUSCULAR HGB CONC 33.5 g/dL (33.0-36.5); MEAN CORPUSCULAR VOLUME 105.8 FL (78-98); MEAN PLATELET VOLUME 9.4 FL (7.4-10.4); NEUTROPHILS # (AUTO) 51.3 X10'3 (1.8-7.7); NEUTROPHILS % (AUTO) 94.6 % (42-75); PLATELET COUNT 168 X10'3 (140-440)
[2019-11-11 20:29] LABS: WHITE BLOOD COUNT 54.2 X10'3 (4.5-11.0)
[2019-11-11 20:35] LABS: CLARITY,URINE CLOUDY (Clear); COLOR,URINE YELLOW (Yellow); GLUCOSE, URINE 100 mg/dl (Neg); KETONES,URINE TRACE mg/dl (Neg); LEUKOCYTE ESTERASE ,URINE TRACE (Neg); NITRITES, URINE NEGATIVE (Neg); OCCULT BLOOD,URINE LARGE (Neg); PROTEIN,URINE 100 mg/dl (Neg)
[2019-11-11 20:38] LABS: ANISOCYTOSIS 1+; PARTIAL THROMBOPLASTIN TIME 43 SECONDS (22-32); PLATELET ESTIMATE DECREASED; TOTAL CELLS COUNTED 100
[2019-11-11 20:39] LABS: POLYCHROMASIA FEW; SMUDGE CELLS FEW
[2019-11-11 20:46] LABS: ALANINE AMINOTRANSFERASE 47 U/L (12-78); ALBUMIN 1.6 G/DL (3.4-5.0); ALKALINE PHOSPHATASE 348 IU/L (46-116); CALCIUM 7.6 MG/DL (8.5-10.1); CHLORIDE 90 MMOL/L (99-107); LIPASE 214 U/L (73-393); MAGNESIUM 2.4 MG/DL (1.5-2.4)
[2019-11-11 20:48] LABS: UA COLLECTION TYPE FOLEY CATH
[2019-11-11 20:50] LABS: AMORPHOUS URATES 1+; BACTERIA,URINE FEW /HPF (Neg); MUCUS STRANDS FEW /LPF (Neg); SQUAMOUS EPITHELIAL CELL,UR FEW /LPF (FEW); WBC,URINE 0-4 /HPF (0-4)
[2019-11-11] MEDS ORDERED: pantoprazole 40MG/NS 100ML BAG 100 ML IV ONE (20:55)
[2019-11-11] MEDS ORDERED: octreotide 100mcg/1 ml ampule IV ONE (20:55)
[2019-11-11] MEDS ORDERED: BACI1CAP6 PO (21:03)
[2019-11-11 21:05] LABS: ALBUMIN/GLOBULIN RATIO 0.5 (1.1-1.5); ANION GAP 15 (8-16); ASPARTATE AMINO TRANSFERASE 78 U/L (10-37); BLOOD UREA NITROGEN 70 MG/DL (7-18); BUN/CREATININE RATIO 12.3 (5.4-32.0); CREATININE 5.68 MG/DL (0.60-1.10); GLUCOSE 112 MG/DL (70-104); POTASSIUM 3.3 MMOL/L (3.5-5.1); SODIUM 130 MMOL/L (135-145); eGFR 11 ML/MIN
[2019-11-11 21:07] LABS: BILIRUBIN,TOTAL 25.7 MG/DL (0.1-1.0)
[2019-11-11] MEDS ORDERED: albumin (human) 25% 100 ML IV solution IV ONE (21:10)
[2019-11-11 21:16] LABS: OCCULT BLOOD STOOL POSITIVE (Neg)
[2019-11-11] MEDS ORDERED: phytonadione inj. 10 MG in normal saline 100ml IV soln 99 ML IV ONE (21:40)
[2019-11-11] MEDS ORDERED: NORMAL SALINE IV ONE (21:40)
[2019-11-11] MEDS ORDERED: levoFLOXACIN-Levaquin 500mg/D5 100 ML IV ONE (21:40)
[2019-11-11] MEDS ORDERED: DESMOPRESSIN IV ONE (21:40)
[2019-11-11] MEDS ORDERED: acetaminophen 325mg tablet PO PRN ×2 (21:45)
[2019-11-11] MEDS ORDERED: ondansetron/PF 4mg/2ml inj IV PRN (21:45)
--- NOTE | 2019-11-11 22:31 | NUR ---
Report to Radha in ICU
--- NOTE | 2019-11-11 22:32 | NUR ---
Patient in room ED 3. I have received report from Cap RN and had the opportunity to ask questions. Patient to be admitted to room 2039 in ICU, will assume care upon arrival to unit.
--- NOTE | 2019-11-11 23:14 | NUR ---
Albumin DC'd per MD Loera
[2019-11-11 23:15] VITALS: BP 110/72
[2019-11-12] VITALS (38 sets, daily range): BP systolic 80–99; BP diastolic 47–60
[2019-11-12] MEDS: octreotide inj. 1,250 MCG in normal saline 250ml IV soln 243.75 ML IV SCH (01:38)
[2019-11-12] MEDS ORDERED: albumin (Human) 5% 250ml 250 ML IV ONE (05:20)
[2019-11-12 05:27] LABS: BASOPHILS # (AUTO) 0.1 X10'3 (0-0.2); BASOPHILS % (AUTO) 0.2 % (0-1); EOSINOPHILS % (AUTO) 0 % (0-6); HEMOGLOBIN 7.1 g/dl (14.0-17.9); LYMPHOCYTES # (AUTO) 0.7 X10'3 (1.1-4.8); LYMPHOCYTES % (AUTO) 1.9 % (21-51); MEAN CORPUSCULAR HEMOGLOBIN 35.2 PG (27.0-31.0); MEAN CORPUSCULAR HGB CONC 33.2 g/dL (33.0-36.5); MEAN CORPUSCULAR VOLUME 106.2 FL (78-98); MEAN PLATELET VOLUME 9.3 FL (7.4-10.4); MONOCYTES # (AUTO) 1.6 X10'3 (0-0.9); MONOCYTES % (AUTO) 4.3 % (2-12); NEUTROPHILS # (AUTO) 33.8 X10'3 (1.8-7.7); NEUTROPHILS % (AUTO) 93.6 % (42-75); PLATELET COUNT 86 X10'3 (140-440); RED BLOOD COUNT 2.03 X10'6 (4.70-6.10); RED CELL DISTRIBUTION WIDTH 17.2 % (11.5-14.5)
[2019-11-12 05:42] LABS: PARTIAL THROMBOPLASTIN TIME 44 SECONDS (22-32)
[2019-11-12 05:51] LABS: ALANINE AMINOTRANSFERASE 31 U/L (12-78); ALBUMIN 2.4 G/DL (3.4-5.0); ALKALINE PHOSPHATASE 222 IU/L (46-116); ANION GAP 16 (8-16); BLOOD UREA NITROGEN 74 MG/DL (7-18); CALCIUM 7.2 MG/DL (8.5-10.1); CHLORIDE 94 MMOL/L (99-107); MAGNESIUM 2.2 MG/DL (1.5-2.4); SODIUM 132 MMOL/L (135-145); TOTAL CARBON DIOXIDE 22.4 MMOL/L (24-32)
[2019-11-12 06:03] LABS: ASPARTATE AMINO TRANSFERASE 55 U/L (10-37); CREATININE 5.73 MG/DL (0.60-1.10); GLUCOSE 111 MG/DL (70-104); POTASSIUM 3.6 MMOL/L (3.5-5.1); TOTAL PROTEIN 4.8 G/DL (6.4-8.2); eGFR 11 ML/MIN
[2019-11-12 06:23] LABS: HEMATOCRIT 21.5 % (42.0-52.0); WHITE BLOOD COUNT 36.1 X10'3 (4.5-11.0)
[2019-11-12 06:26] LABS: ANISOCYTOSIS 1+; MICROCYTOSIS 1+; PLATELET ESTIMATE DECREASED; TOTAL CELLS COUNTED 100
--- NOTE | 2019-11-12 06:30 | NUR ---
received report from Irena MCDERMOTT
[2019-11-12 06:41] LABS: BUN/CREATININE RATIO 12.9 (5.4-32.0)
--- NOTE | 2019-11-12 07:40 | NUR ---
bag1 of 2 blood hanging and infusing
[2019-11-12] MEDS: pantoprazole 40 MG vial IV SCH ×2 (08:51→19:57)
[2019-11-12] MEDS: morphine 2 MG/ML inj. syringe IV PRN (08:52)
[2019-11-12] MEDS ORDERED: normal saline 1000ml 250 ML IV PRN (08:55)
[2019-11-12] MEDS ORDERED: LIDOcaine 1% (10mg/ml) 2ml vial SQ ONE (08:55)
[2019-11-12] MEDS ORDERED: albumin (human) 25% 100ml IV 100 ML IV PRN (08:55)
[2019-11-12] MEDS ORDERED: epoetin 20,000 units/ml inj IV ONE (08:55)
[2019-11-12] MEDS ORDERED: normal saline 1000ml 100 ML IV PRN (08:55)
[2019-11-12] MEDS ORDERED: heparin 1,000 units/ml 10ml inj HE ONE ×2 (09:00)
--- NOTE | 2019-11-12 11:34 | NUR ---
dr walters would like 2 FFP given. orders are in. PATIENT HAS ALSO RECEIVED TWO UNITS OF PRBC THIS SHIFT
--- NOTE | 2019-11-12 12:05 | NUR ---
Initial: Pt admit s/p episode of bloody emesis DX GIB stool occult positive. S/p vitamin K per MD. No current bloody stool at this time per RN. Pt has NG in place and tolerating small sips of clear liquids per RN. LBM 11/10. RD d/w MD regarding leaving NG in as diet advances until adequate PO given pt poor nutrition hx and was agreeable to alternative nutrition recent prior admit. MD agreeable at this time; no EN yet pending GI evaluation once more stable. Pt has visible cachexia w/ severe muscle/fat wasting present in addition to recent poor PO hx recent prior admit and meets minimum severe malnutrition criteria at this time; MD notified. Pt provided w/ written malnutrition ed prior admit by RD. Will monitor for additional GI symptoms, PO tolerance, and EN needs this admit. Rec: 1. advance diet as medically indicated to regular given poor PO hx 2. IF EN; Vital AF at 60ml/hr goal; additional free water per alarm field technician 3. IF EN; PALB Q /; daily wts 4. bowel care as needed 5. wts w/ HD Addendum: 11/12/19 at [address] Amended: Links added.
[2019-11-12 15:05] LABS: HEMATOCRIT 25.8 % (42.0-52.0); HEMOGLOBIN 8.7 g/dl (14.0-17.9); MEAN CORPUSCULAR HEMOGLOBIN 33.2 PG (27.0-31.0); MEAN CORPUSCULAR HGB CONC 33.5 g/dL (33.0-36.5); MEAN CORPUSCULAR VOLUME 99.1 FL (78-98); MEAN PLATELET VOLUME 8.9 FL (7.4-10.4); PLATELET COUNT 63 X10'3 (140-440); RED BLOOD COUNT 2.61 X10'6 (4.70-6.10); RED CELL DISTRIBUTION WIDTH 20.2 % (11.5-14.5)
[2019-11-12 15:11] LABS: WHITE BLOOD COUNT 32.6 X10'3 (4.5-11.0)
--- NOTE | 2019-11-12 15:31 | NUR ---
dialysis at the bedside
[2019-11-12] MEDS: midodrine 5mg tablet PO SCH (15:44)
--- NOTE | 2019-11-12 18:34 | NUR ---
Patient in room ICU 2039. I have received report from Kateryna MCDERMOTT and had the opportunity to ask questions and assume patient care.
--- NOTE | 2019-11-12 18:36 | NUR ---
Patient in room ICU 2039. I have received report from BALDEMAR Tinajero and had the opportunity to ask questions and assume patient care. Patient sitting up in chair eating dinner. On 2L NC with 70 mL/hr NS infusing per provider order. Will continue to monitor closely.
--- NOTE | 2019-11-12 18:47 | NUR ---
LATE ADMINISTRATION OF TRENTAL DUE TO HD INFUSION. 1 L TAKEN OFF PER SPINNING LATHE OPERATOR HYDRAULIC, LESVIA.
[2019-11-12] MEDS: lactobacillus rhamnosus 10,000 MMU CELLS/CAPSULE PO SCH (19:57)
[2019-11-12] MEDS: lactulose 20gm/30ml cup PO SCH (19:58)
[2019-11-12] MEDS ORDERED: MESSAGE TO PHARMACY PO ONE (20:10)
[2019-11-12] MEDS ORDERED: dextrose ORAL solution 15 GM/59 ML bottle PO PRN ×2 (20:10)
[2019-11-12] MEDS ORDERED: dextrose 50%-water 50ml dispensing syringe IV PRN ×2 (20:10)
[2019-11-12] MEDS ORDERED: glucagon, human recombinant 1mg kit SUBCUT PRN (20:10)
[2019-11-12] MEDS ORDERED: insulin Lispro (HumaLOG) vial - multi-dose SQ SCH (20:10)
[2019-11-12] MEDS: morphine 4 MG/ML inj SYRINge IV PRN (20:41)
--- NOTE | 2019-11-12 20:50 | NUR ---
Critical result telephoned to Umesh Null NP. Patient's blood sugar 65. Administered 15g oral glucose shot per protocol. Rechecked at 2034 and blood sugar 61. Patient complained of severe pain when eating or drinking. 25 mL Dextrose 50% IV administered. Rechecked value at 2049 and was 138. Patient started on hyper/hypoglycemic protocol per provider. Will continue to monitor closely.
[2019-11-12] MEDS: insulin glargine (Lantus) pen - multi-dose SQ SCH (21:00)
[2019-11-13] VITALS (23 sets, daily range): BP systolic 79–99; BP diastolic 45–64
[2019-11-13] MEDS: midodrine 5mg tablet PO SCH ×4 (00:09→23:28)
[2019-11-13] MEDS: morphine 4 MG/ML inj SYRINge IV PRN ×3 (02:46→21:47)
[2019-11-13 03:45] LABS: PARTIAL THROMBOPLASTIN TIME 38 SECONDS (22-32)
[2019-11-13 03:50] LABS: ALANINE AMINOTRANSFERASE 35 U/L (12-78); ALBUMIN 2.4 G/DL (3.4-5.0); ALKALINE PHOSPHATASE 233 IU/L (46-116); ASPARTATE AMINO TRANSFERASE 103 U/L (10-37); BASOPHILS # (AUTO) 0.3 X10'3 (0-0.2); BASOPHILS % (AUTO) 0.8 % (0-1); BILIRUBIN,TOTAL 24.8 MG/DL (0.1-1.0); BLOOD UREA NITROGEN 32 MG/DL (7-18); BUN/CREATININE RATIO 9.3 (5.4-32.0); CALCIUM 7.8 MG/DL (8.5-10.1); CREATININE 3.44 MG/DL (0.60-1.10); EOSINOPHILS % (AUTO) 0.1 % (0-6); HEMOGLOBIN 11.1 g/dl (14.0-17.9); LYMPHOCYTES # (AUTO) 0.7 X10'3 (1.1-4.8); LYMPHOCYTES % (AUTO) 1.7 % (21-51); MAGNESIUM 2.1 MG/DL (1.5-2.4); MEAN CORPUSCULAR HEMOGLOBIN 33.4 PG (27.0-31.0); MEAN CORPUSCULAR HGB CONC 33.6 g/dL (33.0-36.5); MEAN CORPUSCULAR VOLUME 99.4 FL (78-98); MONOCYTES # (AUTO) 1.4 X10'3 (0-0.9); MONOCYTES % (AUTO) 3.4 % (2-12); NEUTROPHILS # (AUTO) 38.1 X10'3 (1.8-7.7); PLATELET COUNT 86 X10'3 (140-440); RED BLOOD COUNT 3.32 X10'6 (4.70-6.10); RED CELL DISTRIBUTION WIDTH 21.5 % (11.5-14.5); TOTAL CARBON DIOXIDE 28.5 MMOL/L (24-32); eGFR 19 ML/MIN
[2019-11-13 03:54] LABS: WHITE BLOOD COUNT 40.5 X10'3 (4.5-11.0)
[2019-11-13 04:04] LABS: ALBUMIN/GLOBULIN RATIO 0.9 (1.1-1.5); CHLORIDE 95 MMOL/L (99-107); GLUCOSE 76 MG/DL (70-104); PHOSPHORUS 4.4 MG/DL (2.3-4.5); TOTAL PROTEIN 5.2 G/DL (6.4-8.2)
[2019-11-13 04:05] LABS: ANION GAP 16 (8-16); SODIUM 139 MMOL/L (135-145)
[2019-11-13 04:07] LABS: POTASSIUM 2.9 MMOL/L (3.5-5.1)
--- NOTE | 2019-11-13 04:14 | NUR ---
Critical results called to Umesh Null NP. WBC of 40.5 and K of 2.9. Per provider, will not replace. Will forward to day shift and continue to monitor closely.
[2019-11-13 04:31] LABS: NUCLEATED RED BLOOD CELLS 1 /100WBC (0-0); TOTAL CELLS COUNTED 100
[2019-11-13 04:32] LABS: ANISOCYTOSIS 3+; PLATELET ESTIMATE DECREASED
[2019-11-13 04:33] LABS: STOMATOCYTES 1+
--- NOTE | 2019-11-13 06:00 | NUR ---
Patient in room ICU 2039. I have received report from BALDEMAR Espinal and had the opportunity to ask questions and assume patient care.
--- NOTE | 2019-11-13 06:32 | NUR ---
Problems reprioritized. Patient report given, questions answered & plan of care reviewed with BALDEMAR Palomino.
[2019-11-13] MEDS: pantoprazole 40 MG vial IV SCH ×2 (07:38→19:29)
[2019-11-13] MEDS: multivitamins, therapeutics tablet PO SCH (07:39)
[2019-11-13] MEDS: lactobacillus rhamnosus 10,000 MMU CELLS/CAPSULE PO SCH ×2 (07:39→19:29)
[2019-11-13] MEDS: folic acid 1mg tablet PO SCH (07:39)
[2019-11-13] MEDS: thiamine 100mg tablet PO SCH (07:39)
[2019-11-13] MEDS: levoFLOXACIN-Levaquin 250mg/D5 50 ML IV SCH (07:40)
[2019-11-13] MEDS: lactulose 20gm/30ml cup PO SCH ×2 (07:40→19:29)
[2019-11-13] MEDS ORDERED: potassium Cl 20 mEq SR tablet PO STA (10:17)
[2019-11-13 13:22] LABS: HEMOGLOBIN 11.7 g/dl (14.0-17.9); MEAN CORPUSCULAR HEMOGLOBIN 33.3 PG (27.0-31.0); MEAN CORPUSCULAR HGB CONC 33.3 g/dL (33.0-36.5); MEAN CORPUSCULAR VOLUME 99.8 FL (78-98); PLATELET COUNT 97 X10'3 (140-440); RED BLOOD COUNT 3.51 X10'6 (4.70-6.10); RED CELL DISTRIBUTION WIDTH 21.3 % (11.5-14.5)
[2019-11-13 13:24] LABS: WHITE BLOOD COUNT 43.1 X10'3 (4.5-11.0)
--- NOTE | 2019-11-13 14:13 | NUR ---
Per Dr. Lopes, patient to be NPO after midnight 11/12 for endoscopy tomorrow.
--- NOTE | 2019-11-13 15:53 | NUR ---
Problems reprioritized. Patient report given, questions answered & plan of care reviewed with BALDEMAR Durham.
[2019-11-13] MEDS: mineral oil/petrolatum, white cream 113gm jar TP SCH (19:29)
[2019-11-13] MEDS: insulin glargine (Lantus) pen - multi-dose SQ SCH (19:29)
--- NOTE | 2019-11-13 21:30 | NUR ---
Problems reprioritized. Patient report given, questions answered & plan of care reviewed with BALDEMAR Narayanan. Pt transferred via bed to 301 with all belongings per pt.
--- NOTE | 2019-11-13 21:36 | NUR ---
Patient in room PCU 3011. I have received report from Renetta MCDERMOTT and had the opportunity to ask questions and assume patient care.
[2019-11-14] VITALS (15 sets, daily range): BP systolic 94–106; BP diastolic 58–73
[2019-11-14] MEDS: octreotide inj. 1,250 MCG in normal saline 250ml IV soln 243.75 ML IV SCH (01:05)
[2019-11-14] MEDS: morphine 4 MG/ML inj SYRINge IV PRN (02:52)
[2019-11-14 05:12] LABS: HBSAG SCREEN Negative (Negative)
[2019-11-14 06:05] LABS: BASOPHILS # (AUTO) 0.1 X10'3 (0-0.2); BASOPHILS % (AUTO) 0.2 % (0-1); EOSINOPHILS # (AUTO) 0.1 X10'3 (0-0.9); EOSINOPHILS % (AUTO) 0.3 % (0-6); HEMATOCRIT 34.6 % (42.0-52.0); HEMOGLOBIN 11.7 g/dl (14.0-17.9); LYMPHOCYTES # (AUTO) 0.8 X10'3 (1.1-4.8); LYMPHOCYTES % (AUTO) 1.7 % (21-51); MEAN CORPUSCULAR HEMOGLOBIN 33.7 PG (27.0-31.0); MEAN CORPUSCULAR HGB CONC 33.8 g/dL (33.0-36.5); MEAN CORPUSCULAR VOLUME 99.8 FL (78-98); MEAN PLATELET VOLUME 8.9 FL (7.4-10.4); MONOCYTES # (AUTO) 2.1 X10'3 (0-0.9); MONOCYTES % (AUTO) 4.6 % (2-12); NEUTROPHILS # (AUTO) 42.3 X10'3 (1.8-7.7); NEUTROPHILS % (AUTO) 93.2 % (42-75); PLATELET COUNT 101 X10'3 (140-440); RED BLOOD COUNT 3.46 X10'6 (4.70-6.10); RED CELL DISTRIBUTION WIDTH 21.2 % (11.5-14.5)
[2019-11-14 06:07] LABS: PARTIAL THROMBOPLASTIN TIME 42 SECONDS (22-32)
[2019-11-14 06:10] LABS: WHITE BLOOD COUNT 45.3 X10'3 (4.5-11.0)
--- NOTE | 2019-11-14 06:15 | NUR ---
Patient in room PCU 3011. I have received report from Arden MCDERMOTT and had the opportunity to ask questions and assume patient care.
[2019-11-14 06:16] LABS: ALANINE AMINOTRANSFERASE 36 U/L (12-78); ALBUMIN 2.1 G/DL (3.4-5.0); ALKALINE PHOSPHATASE 247 IU/L (46-116); ANION GAP 14 (8-16); BILIRUBIN,TOTAL 24.3 MG/DL (0.1-1.0); BLOOD UREA NITROGEN 52 MG/DL (7-18); BUN/CREATININE RATIO 10.6 (5.4-32.0); CALCIUM 7.8 MG/DL (8.5-10.1); CHLORIDE 100 MMOL/L (99-107); CREATININE 4.91 MG/DL (0.60-1.10); MAGNESIUM 2.2 MG/DL (1.5-2.4); SODIUM 138 MMOL/L (135-145); TOTAL CARBON DIOXIDE 23.8 MMOL/L (24-32); eGFR 13 ML/MIN
[2019-11-14 06:18] LABS: ALBUMIN/GLOBULIN RATIO 0.8 (1.1-1.5); ASPARTATE AMINO TRANSFERASE 61 U/L (10-37); GLUCOSE 111 MG/DL (70-104); PHOSPHORUS 5.8 MG/DL (2.3-4.5); POTASSIUM 3.4 MMOL/L (3.5-5.1); TOTAL PROTEIN 4.9 G/DL (6.4-8.2)
--- NOTE | 2019-11-14 06:22 | NUR ---
Problems reprioritized. Patient report given, questions answered & plan of care reviewed with Héctor MCDERMOTT.
[2019-11-14] MEDS: pantoprazole 40 MG vial IV SCH (07:29)
[2019-11-14 07:43] LABS: ANISOCYTOSIS 3+; BURR CELLS 2+; PLATELET ESTIMATE DECREASED; TOTAL CELLS COUNTED 100
[2019-11-14 07:44] LABS: POLYCHROMASIA FEW; TOXIC GRANULATION 2+; TOXIC VACUOLATION FEW
[2019-11-14 07:45] LABS: SCHISTOCYTES FEW
[2019-11-14] MEDS: mineral oil/petrolatum, white cream 113gm jar TP SCH ×2 (08:00→20:00)
[2019-11-14] MEDS ORDERED: normal saline 1000ml 250 ML IV PRN (09:08)
[2019-11-14] MEDS ORDERED: normal saline 1000ml 100 ML IV PRN (09:08)
[2019-11-14] MEDS ORDERED: epoetin 20,000 units/ml inj IV ONE (09:10)
[2019-11-14] MEDS ORDERED: heparin 1,000 units/ml 10ml inj HE ONE ×2 (09:15)
[2019-11-14] MEDS: midodrine 5mg tablet PO SCH ×2 (09:48→16:37)
--- NOTE | 2019-11-14 11:45 | NUR ---
Pt taken down to GI lab for EGD
[2019-11-14] MEDS ORDERED: fentaNYL/PF 50MCG/1 ML 2ML syringe ONE (11:57)
[2019-11-14] MEDS ORDERED: MIDAZolam 5mg/5ml vial ONE (11:57)
[2019-11-14] MEDS ORDERED: LIDOcaine Viscous 15ml cup ONE (11:58)
[2019-11-14] MEDS ORDERED: fluconazole-Diflucan 200mg/NS 100 ML IV ONE (14:00)
--- NOTE | 2019-11-14 14:00 | NUR ---
Pt returned from GI lab for EGD. Post op vitals being done, Will continue to monitor Pt.
[2019-11-14] MEDS: lactobacillus rhamnosus 10,000 MMU CELLS/CAPSULE PO SCH ×2 (14:59→20:00)
[2019-11-14] MEDS: thiamine 100mg tablet PO SCH (14:59)
[2019-11-14] MEDS: multivitamins, therapeutics tablet PO SCH (14:59)
[2019-11-14] MEDS: folic acid 1mg tablet PO SCH (14:59)
[2019-11-14] MEDS: lactulose 20gm/30ml cup PO SCH ×2 (14:59→20:00)
--- NOTE | 2019-11-14 15:07 | NUR ---
Jb consult: Pt has mild 2+ bilateral abdominal edema and biliary drain; skin intact. MAY d/w MD and RN regarding NGTF per MD approval s/p GI exam and approved to resume clear liquids. Pt would benefit from supplemental NGTF given little PO intake weeks at this time. Pt reported to cigar head holer on admit prior to floor transfer that "hasn't eaten in weeks." Addendum: 11/14/19 at [address] Amended: Links added.
[2019-11-14 16:42] LABS: HEMATOCRIT 35.8 % (42.0-52.0); MEAN CORPUSCULAR HEMOGLOBIN 33.8 PG (27.0-31.0); MEAN CORPUSCULAR HGB CONC 33.4 g/dL (33.0-36.5); MEAN CORPUSCULAR VOLUME 100.9 FL (78-98); MEAN PLATELET VOLUME 8.8 FL (7.4-10.4); PLATELET COUNT 112 X10'3 (140-440); RED BLOOD COUNT 3.55 X10'6 (4.70-6.10); RED CELL DISTRIBUTION WIDTH 20.6 % (11.5-14.5)
[2019-11-14 16:50] LABS: WHITE BLOOD COUNT 46.6 X10'3 (4.5-11.0)
--- NOTE | 2019-11-14 18:00 | NUR ---
Problems reprioritized. Patient report given, questions answered & plan of care reviewed with Teddy MCDERMOTT.
--- NOTE | 2019-11-14 18:37 | NUR ---
Patient in room PCU 3011. I have received report from BALDEMAR Anaya and had the opportunity to ask questions and assume patient care. Patient awake for bedside report, saline locked and on room air. Stable at this time. Will continue to monitor closely.
[2019-11-14] MEDS: morphine 2 MG/ML inj. syringe IV PRN (19:18)
[2019-11-14] MEDS: insulin glargine (Lantus) pen - multi-dose SQ SCH (21:00)
[2019-11-15] MEDS: morphine 2 MG/ML inj. syringe IV PRN (00:55)
[2019-11-15] MEDS: midodrine 5mg tablet PO SCH ×3 (00:55→16:02)
[2019-11-15] MEDS: pantoprazole 40 MG vial IV SCH ×2 (01:03→07:45)
[2019-11-15 03:00] VITALS: BP 90/54
[2019-11-15 03:44] LABS: BASOPHILS # (AUTO) 0.5 X10'3 (0-0.2); BASOPHILS % (AUTO) 1.1 % (0-1); EOSINOPHILS # (AUTO) 0.2 X10'3 (0-0.9); EOSINOPHILS % (AUTO) 0.4 % (0-6); HEMATOCRIT 34.7 % (42.0-52.0); HEMOGLOBIN 11.6 g/dl (14.0-17.9); LYMPHOCYTES % (AUTO) 2.2 % (21-51); MEAN CORPUSCULAR HEMOGLOBIN 33.4 PG (27.0-31.0); MEAN CORPUSCULAR HGB CONC 33.5 g/dL (33.0-36.5); MEAN CORPUSCULAR VOLUME 99.8 FL (78-98); MEAN PLATELET VOLUME 8.8 FL (7.4-10.4); MONOCYTES # (AUTO) 1.5 X10'3 (0-0.9); MONOCYTES % (AUTO) 3.2 % (2-12); NEUTROPHILS # (AUTO) 43.6 X10'3 (1.8-7.7); NEUTROPHILS % (AUTO) 93.1 % (42-75); PLATELET COUNT 108 X10'3 (140-440); RED BLOOD COUNT 3.47 X10'6 (4.70-6.10); RED CELL DISTRIBUTION WIDTH 20.4 % (11.5-14.5)
[2019-11-15 03:52] LABS: PARTIAL THROMBOPLASTIN TIME 44 SECONDS (22-32)
[2019-11-15 03:59] LABS: ALANINE AMINOTRANSFERASE 36 U/L (12-78); ALKALINE PHOSPHATASE 257 IU/L (46-116); ANION GAP 10 (8-16); BILIRUBIN,TOTAL 24.1 MG/DL (0.1-1.0); BLOOD UREA NITROGEN 24 MG/DL (7-18); BUN/CREATININE RATIO 8.1 (5.4-32.0); CALCIUM 7.8 MG/DL (8.5-10.1); CHLORIDE 102 MMOL/L (99-107); CREATININE 2.96 MG/DL (0.60-1.10); SODIUM 138 MMOL/L (135-145); TOTAL CARBON DIOXIDE 25.9 MMOL/L (24-32); eGFR 23 ML/MIN
[2019-11-15 04:00] LABS: ALBUMIN/GLOBULIN RATIO 0.7 (1.1-1.5); ASPARTATE AMINO TRANSFERASE 67 U/L (10-37); GLUCOSE 76 MG/DL (70-104); PHOSPHORUS 3.5 MG/DL (2.3-4.5); POTASSIUM 3.7 MMOL/L (3.5-5.1); TOTAL PROTEIN 4.8 G/DL (6.4-8.2)
[2019-11-15 04:07] LABS: WHITE BLOOD COUNT 46.8 X10'3 (4.5-11.0)
[2019-11-15 05:07] LABS: NUCLEATED RED BLOOD CELLS 2 /100WBC (0-0); TOTAL CELLS COUNTED 100
[2019-11-15 05:09] LABS: ANISOCYTOSIS 2+; PLATELET ESTIMATE DECREASED; POLYCHROMASIA FEW
--- NOTE | 2019-11-15 05:25 | NUR ---
Critical WBC 46.8 reported via telephone to SERG Null. No change in orders at this time. Will continue to monitor closely.
[2019-11-15 06:00] VITALS: BP 85/52
--- NOTE | 2019-11-15 06:00 | NUR ---
Patient in room PCU 3011. I have received report from Teddy MCDERMOTT and had the opportunity to ask questions and assume patient care.
--- NOTE | 2019-11-15 06:14 | NUR ---
Problems reprioritized. Patient report given, questions answered & plan of care reviewed with BALDEMAR Anaya.
[2019-11-15] MEDS: folic acid 1mg tablet PO SCH (07:45)
[2019-11-15] MEDS: thiamine 100mg tablet PO SCH (07:45)
[2019-11-15] MEDS: lactobacillus rhamnosus 10,000 MMU CELLS/CAPSULE PO SCH (07:45)
[2019-11-15] MEDS: multivitamins, therapeutics tablet PO SCH (07:45)
[2019-11-15] MEDS: levoFLOXACIN-Levaquin 250mg/D5 50 ML IV SCH (07:46)
[2019-11-15] MEDS: lactulose 20gm/30ml cup PO SCH (07:46)
[2019-11-15] MEDS ORDERED: fluconazole-Diflucan 100MG/NS 50 ML IV SCH (08:00)
[2019-11-15] MEDS: mineral oil/petrolatum, white cream 113gm jar TP SCH (08:00)
[2019-11-15 11:00] VITALS: BP 92/54
[2019-11-15 15:00] VITALS: BP 85/54
--- NOTE | 2019-11-15 17:00 | NUR ---
Pt transfered to [facility]. report called to Shamar MCDERMOTT at [facility]. Tele-box removed and returned to [employer]. Pt's belongings gathered and sent with Pt. Pt wheeled down to lobby on gurney by ambulance crew. Pt left with ambulance crew in ambulance for [facility].
== END 2019-11-15 17:00 | DRG 241 ==
LOC: ER 19:07 → ED HOLD 21:45 → ICU 2S 23:10 → PCU 3S 11-13 21:25
PROVIDERS: ADMIT Internal Medicine Critical Care Medicine
PROC: 30233K1 Transfusion of Nonautologous Frozen Plasma into Peripheral Vein, Percutaneous Approach (ICD-10-PCS; principal; 2019-11-12)
PROC: 30233N1 Transfusion of Nonautologous Red Blood Cells into Peripheral Vein, Percutaneous Approach (ICD-10-PCS; 2019-11-12)
PROC: 5A1D70Z Performance of Urinary Filtration, Intermittent, Less than 6 Hours Per Day (ICD-10-PCS; 2019-11-12)
PROC: 0DB58ZX Excision of Esophagus, Via Natural or Artificial Opening Endoscopic, Diagnostic (ICD-10-PCS; 2019-11-14)
PROC: 0DB68ZX Excision of Stomach, Via Natural or Artificial Opening Endoscopic, Diagnostic (ICD-10-PCS; 2019-11-14)
PROC: 5A1D70Z Performance of Urinary Filtration, Intermittent, Less than 6 Hours Per Day (ICD-10-PCS; 2019-11-14)
DX: K26.0 Acute duodenal ulcer with hemorrhage (principal); K76.7 Hepatorenal syndrome; Z76.82 Awaiting organ transplant status; B37.81 Candidal esophagitis; D68.9 Coagulation defect, unspecified; K76.6 Portal hypertension; N18.6 End stage renal disease; B18.2 Chronic viral hepatitis C; D72.829 Elevated white blood cell count, unspecified; K76.9 Liver disease, unspecified; K21.0 Gastro-esophageal reflux disease with esophagitis; F10.10 Alcohol abuse, uncomplicated; K31.89 Other diseases of stomach and duodenum; K70.31 Alcoholic cirrhosis of liver with ascites; Z90.49 Acquired absence of other specified parts of digestive tract; Z99.2 Dependence on renal dialysis; Z79.899 Other long term (current) drug therapy
CPT/HCPCS: 36415; 36430; 43239; 71045; 80053; 81001; 82140; 82272; 82948; 83690; 83735; 84100; 85025; 85027; 85610; 85730; 86885; 86900; 86901; 86920; 87081; 87088; 87340; 93005; 96374; 96375; 97110; 97116; 97161; 97530; 99152; 99285; A4620; C9113; G0257; G0378; J1450; J1644; J1815; J1956; J2250; J2270; J2354; J2405; J2597; J3010; J3430; J7040; J7050; P9016; P9045; P9047; P9059; Q4081